=== PATIENT | female | born 1990 | race Caucasian/White ===

== ENCOUNTER 2018-07-03 08:09 | Emergency (ER) | payer MEDICAID, OTHER ==
[~2018-07-03] VITALS: Ht 165.1 cm; Wt 67.2 kg
[2018-07-03 08:35] VITALS: BP 129/77
--- NOTE | 2018-07-03 08:35 | NUR ---
TO BED # 1 AMBULATORY, REPORT GIVEN TO JEANA HURT
--- NOTE | 2018-07-03 08:40 | NUR ---
25Y/F BIB SELF C/O HEADACHE, S/P FALL LAST MONDAY, SHE HIT HER HEAD ON A COUNTER WITH HEADACHE, VOMITING YESTERDAY AND MONDAY, PT IS FEELING DEHYDRATED AND DOLD AND CHILLS AT THIS TIME, BLURRY VISION, DIARRHEA, WILL CONT TO MONITOR PATIENT, BED DOWN, BED RAIL UP X 1, ER MD AWARE AND NOTIFIED OF PT STATUS. PMH: ANEMIA RX: NONE
--- NOTE | 2018-07-03 09:18 | NUR ---
Patient being evaluated by physician at bedside.
--- NOTE | 2018-07-03 09:18 | NUR ---
Patient being evaluated by physician at bedside.
[2018-07-03] MEDS ORDERED: METOCLOPRAMIDE 10 MG/2 ML INJ VIAL IM ONE (09:20)
[2018-07-03] MEDS ORDERED: KETOROLAC 60 MG/2 ML VIAL IM ONE (09:20)
--- NOTE | 2018-07-03 09:37 | NUR ---
pt taken to ct
--- NOTE | 2018-07-03 09:45 | NUR ---
PT BACK FROM CT
[2018-07-03 09:48] LABS: BARBITURATE, URINE NEG. ng/ml (NEG <=200); BENZODIAZEPINE, URINE NEG. ng/mL (NEG <=200); CANNABINOID, URINE POS. ng/mL (NEG <=50); COCAINE, URINE NEG. ng/mL (NEG <=300); OPIATE, URINE NEG. ng/mL (NEG <=2000); PHENCYCLIDINE SCREEN,URINE NEG. ng/mL (NEG <=25)
[2018-07-03 10:52] VITALS: BP 107/70
--- NOTE | 2018-07-03 10:52 | NUR ---
Patient discharged with v/s stable. Written and verbal after care instructions given and explained. Patient alert, oriented and verbalized understanding of instructions. Ambulatory with steady gait. All questions addressed prior to discharge. ID band removed. Patient advised to follow up with PMD. Rx of fioricet given. Patient educated on indication of medication including possible reaction and side effects. Opportunity to ask questions provided and answered.
== END 2018-07-03 10:52 | disposition home or self-care (01) ==
LOC: MED 08:09
DX: S09.90XA Unspecified injury of head, initial encounter (principal); F10.129 Alcohol abuse with intoxication, unspecified; R11.2 Nausea with vomiting, unspecified; M54.2 Cervicalgia; M54.9 Dorsalgia, unspecified; F41.9 Anxiety disorder, unspecified; W22.03XA Walked into furniture, initial encounter; Y93.89 Activity, other specified; Y92.89 Other specified places as the place of occurrence of the external cause; Y99.8 Other external cause status
CPT/HCPCS: 70450; 80305; 81002; 81025; 96372; 99284; J1885; J2765

== ENCOUNTER 2018-12-05 11:17 | Emergency (ER) | payer OTHER ==
[~2018-12-05] VITALS: Ht 170.2 cm; Wt 63.5 kg
[2018-12-05 11:30] VITALS: BP 121/70
--- NOTE | 2018-12-05 11:36 | NUR ---
PT AMB TO BED 2 WITH STEADY GAIT Addendum: 12/05/18 at 1138 by [email or web address] BED 1
--- NOTE | 2018-12-05 11:55 | NUR ---
PT BIB SELF [facility] C/O AB PAIN AND HEADACHE X LAST TWO WEEKS. +NAUSEA, DENIES VOMITING. LAST BM YESTERDAY, DESCRIBED WATERY. PAIN /10. HAS WHITISH CREAM COLORED VAGINAL DISCHARGE WITH SOME SPOTTING. LMP 10/30/18. PER PT, HAD IN 2007, 2017. 1 MISCARRIGE IN 2016, HAS ONE 13 YRS ONE CHILD. PT IS 5 WEEKS . AUGUST 07, [address] ABDULLAHI ASSESSING THE PATIENT AT THE BEDSIDE. PMH- DENIES RX- DENIES
[2018-12-05] MEDS ORDERED: MULTIVITAMIN-12 10 ML, THIAMINE 100 MG, MAGNESIUM SULFATE 50% 2,000 MG, FOLIC ACID 5 MG... IV ONE ×5 (12:01)
[2018-12-05 12:13] LABS: BILIRUBIN,URINE NEGATIVE (NEGATIVE); BLOOD, URINE NEGATIVE (NEGATIVE); COLOR,URINE YELLOW (YELLOW); LEUKOCYTE ESTERASE ,URINE NEGATIVE (NEGATIVE); NITRITE, URINE NEGATIVE (NEGATIVE); UGLUCOSE NEGATIVE (NEGATIVE)
[2018-12-05 12:21] LABS: APPEARANCE,URINE SLIGHTLY HAZY (CLEAR); RBC,URINE 0-5 /HPF (0-5); WBC,URINE 0-5 /HPF (0-5)
[2018-12-05 12:25] LABS: BASOPHILS % (AUTO) 0.4 % (0.0-2.0); HEMATOCRIT 40.7 % (36-48); HEMOGLOBIN 13.8 g/dL (12.0-16.0); LYMPHOCYTES # (AUTO) 1.3 K/uL (2.5-16.5); LYMPHOCYTES % (AUTO) 18.6 % (20.5-51.1); MEAN CORPUSCULAR HEMOGLOBIN 30 pg (27-31); MEAN CORPUSCULAR HGB CONC 34 g/dL (33-37); MEAN CORPUSCULAR VOLUME 88.6 fL (80-94); MONOCYTES # (AUTO) 0.3 K/uL (0.8-1.0); MONOCYTES % (AUTO) 4.1 % (1.7-9.3); NEUTROPHILS # (AUTO) 5.5 K/uL (1.8-7.7); NEUTROPHILS % (AUTO) 76.9 % (42.2-75.2); PLATELET COUNT (AUTO) 287 K/uL (140-450); RED CELL DISTRIBUTION WIDTH 13.3 % (11.6-13.7); WHITE BLOOD COUNT (AUTO) 7.1 K/uL (4.8-10.8)
[2018-12-05 12:26] LABS: BARBITURATE, URINE NEG. ng/ml (NEG <=200); BENZODIAZEPINE, URINE NEG. ng/mL (NEG <=200); CANNABINOID, URINE POS. ng/mL (NEG <=50); COCAINE, URINE NEG. ng/mL (NEG <=300); OPIATE, URINE NEG. ng/mL (NEG <=2000); PHENCYCLIDINE SCREEN,URINE NEG. ng/mL (NEG <=25)
--- NOTE | 2018-12-05 12:59 | NUR ---
PT STARTED WITH BANANA IVF ORDERED. TOLERATED WELL. GAVE CUP OF WATER. US AT THE BEDSIDE. WILL CONTINUE TO BARRERA IN PT.
[2018-12-05 15:02] VITALS: BP 107/62
--- NOTE | 2018-12-05 15:02 | NUR ---
Patient discharged with v/s stable. Written and verbal after care instructions given and explained. Patient alert, oriented and verbalized understanding of instructions. Ambulatory with steady gait. All questions addressed prior to discharge. ID band removed. Patient advised to follow up with PMD. Rx of [facility] given. Patient educated on indication of medication including possible reaction and side effects. Opportunity to ask questions provided and answered.
--- NOTE | 2018-12-05 15:21 | NUR ---
Horacio boothe in [facility] - 12/05/18 at 1522 by MEDEB PT AMBULATED TO BED 10.
--- NOTE | 2018-12-05 15:21 | NUR ---
PT AMBULATED TO BED 10.
== END 2018-12-05 15:02 | disposition home or self-care (01) ==
LOC: MED 11:17
DX: O26.891 Other specified pregnancy related conditions, first trimester (principal); O99.321 Drug use complicating pregnancy, first trimester; R10.2 Pelvic and perineal pain; F12.90 Cannabis use, unspecified, uncomplicated; Z3A.01 Less than 8 weeks gestation of pregnancy
CPT/HCPCS: 36415; 76817; 80305; 81001; 81025; 84702; 85025; 86900; 86901; 96365; 96366; 99284; A9153; J3411; J3475; J3490; J7030; Q0092